=== PATIENT | female | born 1965 | race Caucasian/White ===

== ENCOUNTER → 2019-09-09 15:58 | Outpatient (CLI) | payer OTHER, SELFPAY ==
--- NOTE | 2019-09-09 | DI.RAD.S_ITS ---
PROCEDURE: XR HIP W PEL IF DONE LT MIN 4V INDICATIONS: BILATERAL FRENCH PAIN TECHNIQUE: AP pelvis with lateral view(s) of the right hip(s). COMPARISON: None. FINDINGS: Bones: No fractures or dislocations. Pelvic ring appears intact. No suspicious bony lesions. Hip joint spaces grossly preserved. Soft tissues: The visualized bowel gas pattern is normal. No suspicious soft tissue calcifications. IMPRESSION: Mild degenerative sclerosis and spurring at the pubis symphysis. . Dictated by: Bob Potter M.D. on 09/09/2019 at 17:13 Approved by: Bob Potter M.D. on 09/09/2019 at 17:14
== END ==
PROVIDERS: Family Provider Internal Medicine; PCP Internal Medicine; Referring Provider Internal Medicine; Visit Provider Internal Medicine
DX: R10.32 Left lower quadrant pain (principal); R10.31 Right lower quadrant pain
CPT/HCPCS: 73522

== ENCOUNTER 2020-05-27 18:20 | Emergency (ER) | payer OTHER, SELFPAY ==
[2020-05-27] VITALS (7 sets, daily range): BP systolic 108–149; BP diastolic 67–103; PULSE 73–97; RESP 14–20; TEMP 36.2; O2SAT 97–100; BMI 22.0
--- NOTE | 2020-05-27 18:40 | ED_ITS ---
HPI - Allergic Reaction General Chief complaint: Allergic Reaction Stated complaint: redness on arms, thinks allergic Rx to meds Time Seen by Provider: 05/27/20 18:39 Source: patient Mode of arrival: Ambulatory Limitations: no limitations History of Present Illness HPI narrative: Patient is a 54-year-old female here for evaluation of an allergic reaction potentially to Macrobid. Patient states that she has a pres cription for Macrobid that she takes after having sexual intercourse. She took 1 of these medications shortly before arrival here to the emergency department and very shortly after taking the medication broke out and or rash. Has had nausea but no vomiting. No problems breathing but did like her throat was closing. She took 1 Benadryl tablet prior to arrival. She has taken Macrobid in the past and has never had an issue with it. She denies any other new exposures. Related Data Previous Rx's Medication Instructions Recorded alprazolam 0.5 mg PO PRN PRN #10 tab 05/10/16 hydroxyzine HCl 25 mg PO PRN PRN #30 tab 05/10/16 epinephrine [EpiPen 2-Last] 0.3 mg IM Q5-15M PRN #1 ea 05/27/20 Allergies Allergy/AdvReac Type Severity Reaction Status Date / Time nitrofurantoin Allergy Verified 05/27/20 18:28 Review of Systems Constitutional Constitutional: Denies fatigue and Denies fever(s) Eyes Eyes: Denies change in vision and Denies itchy eyes ENT Ears, Nose, Mouth, and Throat: Denies lip swelling, Reports throat swelling and Reports tongue swelling Cardiovascular Cardiovascular: Denies chest pain and Denies dyspnea Respiratory Respiratory: Denies cough, Denies dyspnea and Denies wheezing Gastrointestinal Gastrointestinal: Denies change in bowel habits, Reports nausea and Denies vomiting Genitourinary Genitourinary: Denies dysuria Genitourinary: Denies dysuria Musculoskeletal Musculoskeletal: Denies myalgias Integumentary/Breasts Skin/Breast: Reports rash Neurologic Neurologic: Denies behavioral changes Psychiatric Psychiatric: Reports anxiety and Denies behavioral changes Endocrine Endocrine: Denies fatigue and Reports flushing Hematologic/Lymphatic On Anticoagulants: No Allergic/Immunologic Allergic/Immunologic: Reports urticaria, Denies itchy eyes, Denies lip swelling, Reports throat swelling, Reports tongue swelling and Denies wheezing Patient History Medical History Insomnia (08/11/15) Irritable bowel syndrome with diarrhea (08/11/15) Osteopenia (08/11/15) Surgical History (Updated 06/05/17 @ 05:37 by Conversion Provider) History of breast augmentation History of tonsillectomy Family History (Updated 08/14/16 @ 00:00 by Conversion Provider) Child Polycystic kidney disease Brother Mental health problem Schizophrenia Mother Hypertension Social History Smoking Status: Unknown if ever smoked Smoking Status: Unknown if ever smoked alcohol intake frequency: holidays/special occasions only Substance Use Type: does not use Exam Initial Vital Signs Initial Vital Signs: Vital Signs Temperature 97.1 F L 05/27/20 18:28 Pulse Rate 97 H 05/27/20 18:28 Respiratory Rate 15 05/27/20 18:28 Blood Pressure 148/86 H 05/27/20 18:28 Pulse Oximetry 98 05/27/20 18:28 Const General: cooperative and comfortable Limitations: mental status not altered HENMT Head: normal to inspection and normocephalic Nose: external nose normal Face and sinus: normal facial exam Mouth: oral mucosae normal Throat: posterior oropharynx normal Eyes General: appearance normal, both eyes and all related structures Chest Chest: No tenderness Resp Effort & Inspection: normal respiratory effort Auscultation: clear to auscultation bilaterally Cardio Rate: regular rate Rhythm: regular rhythm GI Inspection: non-distended Palpation: soft General: bladder normal to palpation Bimanual Exam- Vagina & Uterus: bladder normal to palpation Skin General: erythema and warm Wounds: no wounds Other: Diffuse urticaria Neuro General: patient alert, patient awake and patient oriented x3 Cognition: normal cognition Extrem General: normal to inspection Other: Diffuse urticaria Psych Mood: anxious mood Course Orders Ordered: Discontinued Medications Diphenhydramine HCl (Diphenhydramine 50 Mg/Ml Vial) 25 mg IV NOW ONE Stop: 05/27/20 18:40 Last Admin: 05/27/20 18:44 Dose: 25 mg Documented by: SERINA Epinephrine HCl (Epinephrine 1 Mg/Ml) 0.5 mg 0.01 mg/kg (0.5 mg) IM NOW ONE Stop: 05/27/20 18:40 Last Admin: 05/27/20 18:43 Dose: 0.5 mg Documented by: SERINA Famotidine (Pepcid) 20 mg in 50 mls @ 200 mls/hr IV NOW ONE Stop: 05/27/20 18:53 Last Infusion: 05/27/20 19:07 Dose: 0 mls/hr Documented by: Admin: 05/27/20 18:44 Dose: 200 mls/hr Documented by: SERINA Sodium Chloride (Normal Saline 0.9%) 1,000 mls @ 1,000 mls/hr IV BOLUS ONE Stop: 05/27/20 19:38 Last Infusion: 05/27/20 19:55 Dose: 0 mls/hr Documented by: Admin: 05/27/20 18:52 Dose: 1,000 mls/hr Documented by: SERINA Methylprednisolone (Methylprednisolone 125 Mg/2 Ml Vial) 125 mg IV NOW ONE Stop: 05/27/20 18:40 Last Admin: 05/27/20 18:45 Dose: 125 mg Documented by: SERINA Vital Signs Vital signs: Vital Signs - 8 hr 05/27/20 19:00 05/27/20 19:30 05/27/20 20:00 Pulse Rate 73 79 83 Respiratory Rate 18 17 19 Blood Pressure 140/85 121/76 112/67 Pulse Oximetry 100 100 97 05/27/20 20:30 Pulse Rate 90 Respiratory Rate 20 Blood Pressure 108/68 Pulse Oximetry 98 MDM - Allergic Reaction MDM Narrative Medical decision making narrative: Unsure the exact etiology of her allergic reaction however it is most likely the Macrobid because this started shortly after she took this medication. She did take Benadryl prior to arrival however she did have diffuse urticaria. Stated feel like her throat was swelling and she did have nausea. Because of this she was treated as an anaphylactic reaction. After medications here in the emergency department she had a complete resolution of all of her symptoms. She was never an respiratory distress. She was observed in the emergency department without any return of symptoms. I had a discussion with her about this. Informed her that she should not take the Macrobid again is this is the most likely culprit of her symptoms. Also send home with a prescription for an EpiPen. She was given strict return precautions and follow-up instructions. She expressed understanding and agreement. Critical Care Time Critical Care Time Critical Care Time: Yes Total Critical Care Time: 35 Attestation: The high probability of a clinically significant, sudden or life threatening deterioration of the respiratory system(s) required my full and direct attention, intervention and personal management. The aggregate critical care time was 35 minutes. This time is in addition to time spent performing reported procedures but includes the following: [X] Data Review and interpretation [X] Patient assessment and monitoring of vital signs [X] Documentation [X] Medication orders and management Discharge Plan Departure Patient Disposition: Home Clinical Impression: Anaphylaxis Instructions: DI for Anaphylaxis, DI for Adverse Drug Reaction -- Allergic Activity Restrictions/Additional Instructions: I recommend that you no longer take the Macrobid/nitrofurantoin. Contact your primary provider for a follow-up. Please return to the emergency department immediately if you start to develop problems breathing, rash, nausea vomiting or any other new or worsening symptoms like we discussed. Prescriptions: New epinephrine [EpiPen 2-Last] 0.3 mg/0.3 mL auto-injector 0.3 mg IM Q5-15M PRN (Reason: anaphylaxis) Qty: 1 RF: 0 No Action alprazolam 0.5 MG tablet 0.5 mg PO PRN PRNQty: 10 RF: 0 hydroxyzine HCl 25 MG tablet 25 mg PO PRN PRNQty: 30 RF: 1 Referrals: Farzana Salas ARNP [Primary Care Provider] -
[2020-05-27] MEDS: EPINEPHrine 1 MG/ML 0.5 MG IM (18:43)
[2020-05-27] MEDS: diphenhydrAMINE 50 MG/ML VIAL 25 MG IV (18:44)
[2020-05-27] MEDS: FAMOTIDINE 20 MG/50 ML PIGGYBACK 200 MG IV (18:44)
[2020-05-27] MEDS: methylPREDNISolone 125 MG/2 ML VIAL IV (18:45)
[2020-05-27] MEDS: SODIUM CHLORIDE 0.9% 1,000 ML 1000 ML IV (18:52)
--- NOTE | 2020-05-27 19:07 | PC.NURSE ---
Patient took 1 tab nitrofurantoin and in 15 minutes developed sever itching in her ears that spread to her arms and legs followed by a red rash all over her body. She denied shortness of breathe, or trouble swallowing.
--- NOTE | 2020-05-27 19:19 | PC.NURSE ---
redness on both arms and legs and stomach
== END 2020-05-27 21:23 | disposition home or self-care (01) ==
PROVIDERS: Emergency Provider Emergency Medicine; Family Provider Internal Medicine; PCP Internal Medicine
DX: T88.6XXA Anaphylactic reaction due to adverse effect of correct drug or medicament properly administered, initial encounter (principal); T37.8X5A Adverse effect of other specified systemic anti-infectives and antiparasitics, initial encounter; R11.0 Nausea; R21 Rash and other nonspecific skin eruption
CPT/HCPCS: 96361; 96365; 96372; 96375; 99284; 99291; J0171; J1200; J2930

== ENCOUNTER → 2020-12-28 10:00 | Outpatient (CLI) | payer OTHER, SELFPAY ==
--- NOTE | 2020-12-28 | DI.MG.S_ITS ---
BILATERAL DIGITAL SCREENING MAMMOGRAM 3D/2D WITH CAD WITH AUGMENTATION: 12/28/2020 CLINICAL: Patient presents for routine screening. S/P bilateral augmentation. Comparison is made to exam dated: 12/25/2008 [facility]. The tissue of both breasts is heterogeneously dense. This may lower the sensitivity of mammography. Current study was also evaluated with a Computer Aided Detection (CAD) system. There is a new round equal density asymmetry in the left breast anterior depth superior region seen on the mediolateral oblique view only. No other significant masses, calcifications, or other findings are seen in either breast. IMPRESSION: INCOMPLETE: NEEDS ADDITIONAL IMAGING EVALUATION The new round equal density asymmetry in the left breast is indeterminate. A diagnostic mammogram and ultrasound is recommended. This exam was interpreted at Station ID: [id number]. NOTE: For mammograms, a report in lay terms will be sent to the patient. Approximately 15% of breast malignancies will not be visualized mammographically. In the management of a palpable breast mass, a negative mammogram must not discourage biopsy of a clinically suspicious lesion. Electronically Signed By: Leny rivera/marcio:12/28/2020 11:50:31 letter sent: Additional Imaging Needed ACR BI-RADS Category 0: Incomplete 3340F
== END ==
PROVIDERS: Family Provider Internal Medicine; PCP Internal Medicine; Referring Provider Internal Medicine; Visit Provider Internal Medicine
DX: Z12.31 Encounter for screening mammogram for malignant neoplasm of breast (principal); Z98.82 Breast implant status
CPT/HCPCS: 77063; 77067

== ENCOUNTER → 2021-01-27 08:34 | Outpatient (CLI) | payer OTHER, SELFPAY ==
--- NOTE | 2021-01-27 | DI.US.S_ITS ---
LIMITED ULTRASOUND OF LEFT BREAST: 01/27/2021 CLINICAL: Patient returns today to evaluate a focal asymmetry in the left breast. Comparison is made to exams dated: 01/27/2021 mammogram, 12/28/2020 mammogram, and 12/25/2008 mammogram - [facility]. Real-time ultrasound of the left breast 12-3 o'clock region was performed. Baeza scale images of the real-time examination were reviewed. Fibroglandular tissue but no mass is identifed in the area of the mammographic asymmetry in the left breast upper outer quadrant. IMPRESSION: NEGATIVE No sonographic abnormality is seen corresponding to the possible mammographic asymmetry in the left breast, which is most compatible with normal fibroglandular tissue. Return to screening mammograms is recommended. There is no sonographic evidence of malignancy. A 1 year screening mammogram is recommended. This exam was interpreted at Station ID: [id number]. Electronically Signed By: Herson brady/marcio:01/27/2021 10:37:51 letter sent: Normal Exam Ultrasound BI-RADS: 1 Negative
--- NOTE | 2021-01-27 | DI.MG.S_ITS ---
UNILATERAL LEFT DIGITAL DIAGNOSTIC MAMMOGRAM 3D/2D WITH ADDITIONAL VIEWS: 01/27/2021 CLINICAL: Additional evaluation requested from prior study. Comparison is made to exams dated: 12/28/2020 mammogram and 12/25/2008 mammogram - [facility]. The tissue of left breast is heterogeneously dense. This may lower the sensitivity of mammography. The possible round equal density asymmetry in the left breast anterior depth superior region previously seen on the mediolateral oblique view only is less prominent and is not definitely seen on the current exam. No other significant masses or calcifications are seen in the breast. IMPRESSION: INCOMPLETE: NEEDS ADDITIONAL IMAGING EVALUATION The possible round equal density asymmetry in the left breast that does not definitely persist is indeterminate. An ultrasound is recommended. This exam was interpreted at Station ID: [id number]. NOTE: For mammograms, a report in lay terms will be sent to the patient. Approximately 15% of breast malignancies will not be visualized mammographically. In the management of a palpable breast mass, a negative mammogram must not discourage biopsy of a clinically suspicious lesion. Electronically Signed By: Herson Dan M.D. ar/:01/27/2021 10:31:44 ACR BI-RADS Category 0: Incomplete [id number]
== END ==
PROVIDERS: Family Provider Internal Medicine; PCP Internal Medicine; Referring Provider Internal Medicine; Visit Provider Internal Medicine
DX: R92.8 Other abnormal and inconclusive findings on diagnostic imaging of breast (principal)
CPT/HCPCS: 76642; 77065; G0279

== ENCOUNTER → 2021-03-17 08:19 | Outpatient (CLI) | payer OTHER, SELFPAY ==
--- NOTE | 2021-03-17 08:21 | DI.RAD.S_ITS ---
PROCEDURE: XR KUB INDICATIONS: History of kidney stone TECHNIQUE: One view of the abdomen acquired. COMPARISON: None. FINDINGS: Surgical changes and devices: None. Bowel: Nonspecific bowel gas pattern. Soft tissues: Punctate calcifications project over the renal silhouettes, compatible with nephrolithiasis. Visualized solid organ contours appear normal in size. Bones: No suspicious bony lesions. IMPRESSION: 1. Nonobstructive bowel gas pattern. 2. Nephrolithiasis. Dictated by: Germán Novak M.D. on 03/17/2021 at 8:57 Approved by: Germán Novak M.D. on 03/17/2021 at 8:58
== END ==
PROVIDERS: Family Provider Internal Medicine; PCP Internal Medicine; Referring Provider Specialist; Visit Provider Specialist
DX: N39.8 Other specified disorders of urinary system (principal); N20.0 Calculus of kidney; R39.14 Feeling of incomplete bladder emptying; R33.9 Retention of urine, unspecified; Z87.442 Personal history of urinary calculi; Z87.440 Personal history of urinary (tract) infections; Z87.42 Personal history of other diseases of the female genital tract
CPT/HCPCS: 51798; 74018; 81002; 99213

== ENCOUNTER → 2021-03-31 09:33 | Outpatient (CLI) | payer OTHER, SELFPAY ==
--- NOTE | 2021-03-31 09:34 | DI.CT.S_ITS ---
PROCEDURE: CT ABDOMEN PELVIS WO CON INDICATIONS: Renal calculi TECHNIQUE: Axial sections were acquired from the lung bases to the pubic symphysis. Coronal and sagittal reformats were performed. For radiation dose reduction, the following was used: automated exposure control, adjustment of mA and/or kV according to patient size. COMPARISON: None. FINDINGS: Image quality: Excellent. Lung bases: Unremarkable. Heart: No significant findings. URINARY: Right Kidney: No stones or hydronephrosis. Right Ureter: No hydroureter. Left Kidney: There is a 3 mm in diameter nonobstructing calculus within the midpole of the left kidney. Punctate calcifications are present in the lower pole as well. No left hydronephrosis. Left Ureter: No hydroureter or ureterolithiasis. Bladder: Normal wall thickness. No stones. ABDOMEN: Liver: Unremarkable. Gallbladder: Unremarkable. Biliary ducts: Unremarkable. Pancreas: Unremarkable. Spleen: Unremarkable. Adrenal Glands: Unremarkable. Stomach and Bowel: Stomach, small bowel loops, and colon are unremarkable. The appendix is thin walled and gas filled. Peritoneum: No abnormal intraperitoneal fluid. No free air. Ventral Wall: No hernia. Abdominal Nodes: No enlarged retroperitoneal or mesenteric lymph nodes. Vessels: There are scattered atheromatous calcifications throughout the aorta and iliac arteries bilaterally. PELVIS: Pelvic Organs: There is a exophytic posterior partially calcified uterine fibroid. Pelvic Nodes: Unremarkable. Miscellaneous: No inguinal hernias are seen. Bones: Unremarkable. IMPRESSION: 1. Nonobstructing left nephrolithiasis. No hydronephrosis, hydroureter, or ureterolithiasis. 2. Normal appendix. Dictated by: Jillian Woodard M.D. on 03/31/2021 at 10:54 Approved by: Jillian Woodard M.D. on 03/31/2021 at 10:58
== END ==
PROVIDERS: Family Provider Internal Medicine; PCP Internal Medicine; Referring Provider Urology; Visit Provider Urology
DX: Z87.442 Personal history of urinary calculi (principal); N20.0 Calculus of kidney
CPT/HCPCS: 74176

== ENCOUNTER → 2021-07-08 11:11 | Outpatient (CLI) | payer OTHER, SELFPAY ==
--- NOTE | 2021-07-08 11:14 | DI.RAD.S_ITS ---
PROCEDURE: XR KUB INDICATIONS: Renal calculi TECHNIQUE: One view of the abdomen acquired. COMPARISON: [facility], CR, XR KUB, 03/17/2021, 8:13. FINDINGS: Surgical changes and devices: None. Bowel: Increased stool is seen throughout the large bowel. Soft tissues: No suspicious abdominal calcifications. Visualized solid organ contours appear normal in size. Previously described punctate calcifications projecting over the right inferior pole and left midpole are unchanged. Bones: No suspicious bony lesions. IMPRESSION: 1. No acute abnormality. 2. Punctate calculi superimposed over the kidneys are unchanged. 3. Constipation. Dictated by: Markell Rueda M.D. on 07/08/2021 at 12:03 Approved by: Markell Rueda M.D. on 07/08/2021 at 12:06
== END ==
PROVIDERS: Family Provider Internal Medicine; PCP Internal Medicine; Referring Provider Urology; Visit Provider Urology
DX: N20.0 Calculus of kidney (principal); K59.00 Constipation, unspecified
CPT/HCPCS: 74018

== ENCOUNTER → 2022-01-31 12:08 | Outpatient (CLI) | payer OTHER, SELFPAY ==
--- NOTE | 2022-01-31 12:09 | DI.RAD.S_ITS ---
PROCEDURE: XR KUB INDICATIONS: Kidney stone TECHNIQUE: One view of the abdomen acquired. COMPARISON: [facility], CR, XR KUB, 03/17/2021, 8:13. [facility], CR, XR KUB, 07/08/2021, 11:09. FINDINGS: Surgical changes and devices: None. Bowel: Bowel gas pattern is normal. Soft tissues: 2 millimeter calcification projects over the midpole of the left kidney which is stable compared Coarse calcifications project over the lower pelvis likely related to uterine fibroid. Visualized solid organ contours appear normal in size. Bones: No suspicious bony lesions. IMPRESSION: 2 millimeter left renal stone. Dictated by: Karen Zambrano MD, PhD on 01/31/2022 at 13:32 Approved by: Karen Zambrano MD, PhD on 01/31/2022 at 13:33
== END ==
PROVIDERS: Family Provider Internal Medicine; PCP Internal Medicine; Referring Provider Urology; Visit Provider Urology
DX: N20.0 Calculus of kidney (principal)
CPT/HCPCS: 74018

== ENCOUNTER → 2022-02-03 09:10 | Outpatient (CLI) | payer OTHER, SELFPAY | PROVIDERS: Family Provider Internal Medicine; PCP Internal Medicine; Visit Provider Urology | DX: N20.0 Calculus of kidney (principal); R33.9 Retention of urine, unspecified; R39.14 Feeling of incomplete bladder emptying; Z87.440 Personal history of urinary (tract) infections; Z87.42 Personal history of other diseases of the female genital tract | CPT/HCPCS: 51798; 81002; 87077; 87086; 87186; 99214 ==

== ENCOUNTER → 2022-06-16 09:56 | Outpatient (CLI) | payer OTHER, SELFPAY ==
--- NOTE | 2022-06-16 10:21 | DI.DEXA.S_ITS ---
Bone Density Report Name: JUANITA BENTLEY Age: 56 Sex: Female Ethnicity: White Date of : 1965 Indication: osteopenia; Referring Provider: ISMAEL NUNES Study: Bone densitometry was performed. Exam Date: June 16, 2022 Accession number: [id number] Bone Density: Region BMD T-score Z-score Classification AP Spine(L1-L4) 0.811 -2.1 -0.8 Osteopenia Femoral Neck (Left) 0.495 -3.2 -2.0 Osteoporosis Total Hip (Left) 0.648 -2.4 -1.5 Osteopenia Femoral Neck (Right) 0.517 -3.0 -1.8 Osteoporosis Total Hip (Right) 0.664 -2.3 -1.4 Osteopenia Total Hip Mean 0.656 -2.4 -1.5 Osteopenia World Health Organization criteria for BMD impression classify patients as: Normal (T-score at or above -1.0), Osteopenia (T-score between -1.0 and -2.5), or Osteoporosis (T-score at or below -2.5). 10-year Fracture Risk: FRAX not reported because: Some T-score for Spine Total or Hip Total or Femoral Neck at or below -2.5 Previous Exams: -- Region Exam Age BMD T-score BMD Change BMD Change Date g/cm2 vs Baseline vs Previous -- AP Spine (L1-L4) 06/16/2022 56 0.811 -2.1 -0.046 (-5.4%)# -0.046 (-5.4%)# 10/18/2016 50 0.857 -1.7 Total Hip(Left) 06/16/2022 56 0.648 -2.4 -0.008 (-1.2%)# -0.008 (-1.2%)# 10/18/2016 50 0.656 -2.3 Total Hip(Right) 06/16/2022 56 0.664 -2.3 0.003 (0.5%)# 0.003 (0.5%)# 10/18/2016 50 0.660 -2.3 -- *Denotes significance at 95% confidence level, LSC for AP Spine = 0.022 g/cm2, LSC for Total Hip = 0.027 g/cm2 # Denotes dissimilar scan types or analysis methods Impression: The patient has osteoporosis, based on the Left Femoral Neck T-score. No significant bone loss was observed. Discussion: HIGH RISK OF FRACTURE. BONE DENSITY IS UNDESIRABLY LOW AT ONE OR MORE SKELETAL SITES, CONSISTENT WITH OSTEOPOROSIS. ALSO, BONE DENSITY IS LOWER THAN EXPECTED FOR AGE AND SEX AT ONE OR MORE SKELETAL SITES; RECOMMEND A DILIGENT SEARCH FOR SECONDARY CAUSES OF BONE LOSS. This patient's lowest T-score meets the World Health Organization's (WHO) criteria for osteoporosis at one or more sites (T-score -2.5 or below). In untreated patients, the risk of osteoporotic fracture increases approximately two-fold for each 1.0 SD decrease in T-score. Low bone density is not the only risk factor for fracture; also consider factors such as patient's age, frailty or poor health, risk of falling, risk of injury, previous osteoporotic fracture, family history of osteoporosis, cigarette smoking, low body weight, etc. Not everyone with low bone mineral density has osteoporosis; osteomalacia and other metabolic bone disorders should also be considered. Patients who have osteoporosis should be evaluated for specific diseases and conditions (secondary causes) that may cause or contribute to bone loss. The [place] Association of Clinical Endocrinologists (AACE) and National Osteoporosis Foundation (NOF) recommend pharmacologic intervention for all postmenopausal women whose T-score is in this range. Also, this patient's bone mineral density is below the range considered normal for healthy age-, sex-, and race-matched controls at least one site (Z-score -2.0 or below). This warrants careful evaluation for diseases and conditions that may contribute to accelerated bone loss. The patient should follow a healthful lifestyle (good nutrition with adequate calcium and vitamin D, and appropriate weight-bearing exercise). Follow-Up: Consider a repeat BMD and Vertebral Fracture Assessment (VFA) exam in 2 years or sooner if medically necessary, to reassess this patient's status. Reported by: SANDEEP PURDY M.D. on 06/16/2022 10:29:00 AM.
== END ==
PROVIDERS: Family Provider Internal Medicine; PCP Internal Medicine; Referring Provider Internal Medicine; Visit Provider Internal Medicine
DX: Z78.0 Asymptomatic menopausal state (principal); M81.0 Age-related osteoporosis without current pathological fracture
CPT/HCPCS: 77080

== ENCOUNTER → 2022-07-05 09:46 | Outpatient (CLI) | payer OTHER, SELFPAY ==
--- NOTE | 2022-07-05 | DI.MG.S_ITS ---
BILATERAL DIGITAL SCREENING MAMMOGRAM 3D/2D WITH CAD WITH AUGMENTATION: 07/05/2022 CLINICAL: Routine screening. Comparison is made to exams dated: 12/28/2020 mammogram and 12/25/2008 mammogram - [facility]. Both breasts are heterogeneously dense, which may obscure small masses (category c / 51-75% glandular tissue). Current study was also evaluated with a Computer Aided Detection (CAD) system. Bilateral breast implants are stable. No significant masses, calcifications, or other findings are seen in either breast. There has been no significant interval change. IMPRESSION: NEGATIVE There is no mammographic evidence of malignancy. A 1 year screening mammogram is recommended. Based on the Tyrer Cuzick model (a risk assessment model) the patient's lifetime risk is 10.0% and her 10 year risk is 3.7%. According to the ACR, ACS, and NCCN guidelines, an annual breast MRI exam along with mammogram is recommended if the patient's lifetime risk is 20% or greater. This exam was interpreted at Station ID: [id number]. NOTE: For mammograms, a report in lay terms will be sent to the patient. Approximately 15% of breast malignancies will not be visualized mammographically. In the management of a palpable breast mass, a negative mammogram must not discourage biopsy of a clinically suspicious lesion. Electronically Signed By: Jillian dillard/marcio:07/05/2022 14:11:20 letter sent: Normal Exam ACR BI-RADS Category 1: Negative [id number]
== END ==
PROVIDERS: Family Provider Internal Medicine; PCP Internal Medicine; Referring Provider Internal Medicine; Visit Provider Internal Medicine
DX: Z12.31 Encounter for screening mammogram for malignant neoplasm of breast (principal)
CPT/HCPCS: 77063; 77067

== ENCOUNTER → 2022-07-31 11:09 | Outpatient (CLI) | payer OTHER, SELFPAY ==
--- NOTE | 2022-07-31 | DI.RAD.S_ITS ---
PROCEDURE: XR HIP W PEL IF DONE RT 2V INDICATIONS: HIP PAIN TECHNIQUE: 2 views of the hip were acquired. COMPARISON: [facility], CR, XR HIP W PEL IF DONE DOM 3TO4V, 09/09/2019, 16:02. FINDINGS: Bones: No fractures or dislocations. No suspicious bony lesions. The visualized pelvic ring appears intact. Mild nonuniform joint space narrowing in osteophytic lipping of the acetabulum. Soft tissues: No suspicious soft tissue calcifications or masses. IMPRESSION: No acute bony abnormality. Minimal right hip osteoarthritis. Dictated by: Jacob Luevano M.D. on 07/31/2022 at 12:21 Approved by: Jacob Luevano M.D. on 07/31/2022 at 12:27
--- NOTE | 2022-07-31 11:12 | DI.RAD.S_ITS ---
PROCEDURE: XR KUB INDICATIONS: Kidney stone TECHNIQUE: One view of the abdomen acquired. COMPARISON: [facility], CR, XR KUB, 01/31/2022, 12:11. [facility], CR, XR KUB, 07/08/2021, 11:09. FINDINGS: Surgical changes and devices: None. Bowel: Bowel gas pattern is normal. Soft tissues: 3.6 millimeter calcification projects over the left kidney, similar to prior Bones: No suspicious bony lesions. IMPRESSION: Stable 3.6 millimeter left renal stone. Dictated by: Jacob Luevano M.D. on 07/31/2022 at 12:20 Approved by: Jacob Luevano M.D. on 07/31/2022 at 12:21
== END ==
PROVIDERS: Family Provider Internal Medicine; PCP Internal Medicine; Referring Provider Urology; Visit Provider Urology
DX: N20.0 Calculus of kidney (principal); M25.551 Pain in right hip
CPT/HCPCS: 73502; 74018

== ENCOUNTER → 2022-10-11 06:52 | Outpatient (CLI) | payer OTHER, SELFPAY ==
--- NOTE | 2022-10-11 | DI.CT.S_ITS ---
PROCEDURE: CT ABDOMEN PELVIS W CON INDICATIONS: Change in bowel habit TECHNIQUE: After the administration of oral and intravenous contrast, axial sections were acquired from the lung bases to the pubic symphysis. Coronal and sagittal reformats were performed. For radiation dose reduction, the following was used: automated exposure control, adjustment of mA and/or kV according to patient size. COMPARISON:None. FINDINGS: Image quality: Excellent. Lung bases: Unremarkable. Heart: No significant findings. ABDOMEN: Liver: Unremarkable. Gallbladder: Unremarkable. Biliary ducts: Unremarkable. Pancreas: Unremarkable. Spleen: Unremarkable. Adrenal Glands: Unremarkable. Kidneys and Ureters: Fluid attenuating renal cysts; no complex renal cysts which require follow-up. Punctate nonobstructing left-sided nephrolithiasis, without hydronephrosis. Stomach and Bowel: Stomach, small bowel loops, and colon are unremarkable. Peritoneum: No abnormal intraperitoneal fluid. No free air. Ventral Wall: No hernia. Abdominal Nodes: No retroperitoneal or mesenteric adenopathy by size criteria. Vessels: Aorta and inferior vena cava are normal in size. PELVIS: Pelvic Organs: 3 subserosal fibroids, largest measuring 2.7 centimeters along the posterior margin. Bladder: Unremarkable. Pelvic Nodes: No enlarged lymph nodes. Miscellaneous: No inguinal hernias are seen. Bones: Pectus excavatum. IMPRESSION: Three subserosal uterine fibroids, largest measuring 2.7 centimeters. Punctate nonobstructing left-sided nephrolithiasis. No hydronephrosis. No findings to explain the patient's hematochezia. Consider diagnostic colonoscopy. Dictated by: Jacob Luevano M.D. on 10/11/2022 at 9:01 Approved by: Jacob Luevano M.D. on 10/11/2022 at 9:05
== END ==
PROVIDERS: Family Provider Internal Medicine; PCP Internal Medicine; Referring Provider Internal Medicine; Visit Provider Internal Medicine
DX: K62.5 Hemorrhage of anus and rectum (principal); D25.2 Subserosal leiomyoma of uterus; N20.0 Calculus of kidney; R10.31 Right lower quadrant pain; R19.4 Change in bowel habit
CPT/HCPCS: 74177; Q9967

== ENCOUNTER 2022-11-28 06:52 | Day surgery (SDC) | payer OTHER, SELFPAY ==
--- NOTE | 2022-11-28 | PATH_ITS ---
[facility] Accession Number: [id number] No. of containers..01 Tissue . 01 Material submitted: . rectum - RECTAL POLYP . 01 Diagnosis: Rectum, Polyp: Hyperplastic polyp. MRV 12/05/2022 1401 Local . 01 Electronically signed: . Celia Abernathy MD, Pathologist NPI- [id number] . 01 Gross description: . RECTAL POLYP: Received in formalin is multiple fragment(s) of spencer, soft tissue measuring 0.5 x 0.4 x 0.1 cm in aggregate submitted entirely in 1 cassette(s) /AAY 11/29/2022 0336 Local . 01 Pathologist provided ICD-10: K62.1 . 01 CPT . 462981 Specimen Comment: A courtesy copy of this report has been sent to [phone] Performed at: 01 [facility] [address] [place] [address], [place], [place] [id number] MD Dimas Etienne MD Phone: [phone]
[2022-11-28] MEDS: LACTATED RINGERS 1,000 ML 42 ML IV (07:12)
[2022-11-28 07:15] VITALS: BP 130/87; PULSE 75; RESP 16; TEMP 36.8; O2SAT 100; BMI 19.4
--- NOTE | 2022-11-28 07:41 | PM.HP.1 ---
History of Present Illness History of Present Illness Date Patient Seen: 11/28/22 Time Patient Seen: 07:41 Chief complaint: Colonoscopy Narrative: 57-year-old woman with intermittent rectal bleeding here for diagnostic colonoscopy. Please refer to the H and P from last month for further detail. No significant interval changes in health. [facility], [facility] Medical History Feeling of incomplete bladder emptying History of kidney stones History of senile atrophic vaginitis History of urinary tract infection Incomplete emptying of bladder Insomnia (08/11/15) Irritable bowel syndrome with diarrhea (08/11/15) Osteopenia (08/11/15) Renal calculus Surgical History History of breast augmentation History of tonsillectomy Family History Child Polycystic kidney disease Brother Mental health problem Schizophrenia Mother Hypertension Heart disease Father Lung cancer Aunt Breast cancer Grandfather Pancreatic cancer Social History marital status: household members: spouse lives independently: Yes occupational status: unemployed Smoking Status: Never smoker alcohol intake: never substance use type: does not use Meds Home Medications and Allergies Home Medications Medication Instructions Recorded Confirmed Type levothyroxine 25 mcg tablet 25 mcg PO DAILY 01/19/21 11/28/22 History (Levo-T) estradiol 1 unit SUBCUT 2XW 10/19/22 11/28/22 History Allergies Allergy/AdvReac Type Severity Reaction Status Date / Time nitrofurantoin Allergy Severe Anaphylaxis Verified 11/28/22 07:13 Exam Vital Signs (past 8 hours): - 11/28/22 07:15 Temperature 98.2 F Pulse Rate 75 Respiratory Rate 16 Blood Pressure 130/87 Pulse Oximetry 100 Oxygen Delivery Method Room Air Oxygen Delivery Method Room Air Narrative Exam Narrative: General adult alert oriented no acute distress Assessment & Plan Assessment & Plan narrative: 57-year-old woman with intermittent rectal bleeding here for diagnostic colonoscopy. Risks, benefits, alternatives discussed. Risks including but not limited to myocardial infarction, aspiration, bleeding, pain, missed lesion, incomplete examination, need for further radiographic studies, colonic perforation, and need for major abdominal surgery were discussed. All questions were answered to their satisfaction, and they are in agreement with this plan.
[2022-11-28 08:15] VITALS: BP 118/73; PULSE 79; RESP 16; TEMP 36.2; O2SAT 98
--- NOTE | 2022-11-28 08:17 | PM.OP.COLON ---
Operative Date/Time/Diagnoses Date of procedure: 11/28/22 Time of procedure: 08:18 Pre-op diagnosis: Rectal bleeding Post-op diagnosis: other (Hemorrhoids) Procedure & Clinicians Study performed: Colonoscopy and polypectomy Same procedure as scheduled: Yes Indications: Diagnostic colonoscopy for rectal bleeding Surgeon: Kaleb Young Procedure Notes Procedure in detail: The history and physical was performed/updated and the patient is ASA class is 2. The procedure was discussed in detail with the patient. Potential risks complications including infection, bleeding, missed diagnosis, perforation, need for surgery, and were explained. Their questions were answered and informed consent was obtained. Patient was brought to the procedure room and placed standard monitoring equipment. The patient's vital signs were monitored continuously throughout the entire procedure. Prior to starting time-out was performed. The patient was placed in the left lateral recumbent position. Procedural sedation was administered by anesthesia. Examination began with a thorough inspection of the perianal area there was no evidence of fissures, fistulae, external hemorrhoids or cutaneous malignancy. The colonoscopy scope was then placed into the anal canal and was advanced to the cecum, which was identified by the ileocecal valve, the appendiceal orifice and the confluence of the taenia. The scope was then slowly withdrawn examining colon thoroughly in all directions, irrigating it of any residual stool. The patient tolerated the procedure well. They will be discharged once criteria are met. The prep was of good/excellent quality. The withdrawl time was 7 minutes. FINDINGS -5 mm rectal polyp removed with forceps -Grade 1 internal hemorrhoids Findings: other findings Specimen(s): other (Rectal polyp) Impression: Colonic polyp x1, internal hemorrhoids Post-procedure Recommendations: High fiber diet Plan for aftercare: Follow-up dependent on pathology findings Disposition: same day surgery
[2022-11-28 08:19] VITALS: BP 111/72; PULSE 76; RESP 24; O2SAT 99
[2022-11-28 08:25] VITALS: BP 97/65; PULSE 83; RESP 19; TEMP 36.2; O2SAT 99
[2022-11-28 08:29] VITALS: BP 93/66; PULSE 73; RESP 14; O2SAT 100
[2022-11-28 08:40] VITALS: BP 100/69; PULSE 66
== END 2022-11-28 08:58 | disposition home or self-care (01) ==
PROVIDERS: Family Provider Internal Medicine; PCP Internal Medicine; Referring Provider Surgery; Visit Provider Surgery
PROC: 0DJD8ZZ Inspection of Lower Intestinal Tract, Via Natural or Artificial Opening Endoscopic (ICD-10-PCS; CPT 45378; principal; 2022-11-28 08:00)
DX: K62.5 Hemorrhage of anus and rectum (principal); K64.0 First degree hemorrhoids; K62.1 Rectal polyp
CPT/HCPCS: 45380; J2704

== ENCOUNTER → 2022-12-27 07:57 | Outpatient (CLI) | payer OTHER, SELFPAY ==
--- NOTE | 2022-12-27 07:58 | DI.RAD.S_ITS ---
PROCEDURE: XR FOOT LT MIN 3V INDICATIONS: Left foot pain TECHNIQUE: 3 views of the foot were acquired. COMPARISON: None. FINDINGS: Bones: No fractures or dislocations. No suspicious bony lesions. Soft tissues: No tibiotalar joint effusion. Achilles tendon appears normal. IMPRESSION: No acute bony abnormality. Dictated by: Markell Rueda M.D. on 12/27/2022 at 9:57 Approved by: Markell Rueda M.D. on 12/27/2022 at 9:59
== END ==
PROVIDERS: Family Provider Internal Medicine; PCP Internal Medicine; Referring Provider Nurse Practitioner Family; Visit Provider Nurse Practitioner Family
DX: M79.672 Pain in left foot (principal)
CPT/HCPCS: 73630

== ENCOUNTER → 2023-12-31 07:49 | Outpatient (CLI) | payer OTHER, SELFPAY ==
--- NOTE | 2023-12-31 08:06 | DI.RAD.S_ITS ---
PROCEDURE: XR KUB INDICATIONS: Hematuria TECHNIQUE: One view of the abdomen acquired. COMPARISON: [facility], CR, XR KUB, 07/31/2022, 11:13. FINDINGS: Stool gas pattern: Normal-no evidence of ileus or obstruction. No free intraperitoneal or extraperitoneal air. No gross evidence of ascites Soft tissues: A 3 millimeter calcification overlies the inferior pole of left kidney which likely indicates a renal stone. No definite stones overlie either ureter. A 2.6 centimeter conglomeration of small calcifications, in the right true pelvis, likely represents a calcified uterine fibroid. The urinary bladder stone is possible, but less likely.. Organs: No gross evidence for organomegaly. IMPRESSION: 3 millimeter calcification overlying the inferior left kidney that likely a renal stone. 2.6 centimeter conglomerate of calcifications right true pelvis more likely a partially calcified fibroid rather than a bladder stone. Dictated by: Joe Gonzalez M.D. on 01/01/2024 at 9:30 Approved by: Joe Gonzalez M.D. on 01/01/2024 at 9:32
== END ==
PROVIDERS: Family Provider Internal Medicine; PCP Internal Medicine; Referring Provider Nurse Practitioner Family; Visit Provider Nurse Practitioner Family
DX: M54.9 Dorsalgia, unspecified (principal); R31.9 Hematuria, unspecified
CPT/HCPCS: 74018; 87077; 87086

== ENCOUNTER → 2024-07-23 14:58 | Outpatient (CLI) | payer OTHER, SELFPAY ==
--- NOTE | 2024-07-23 14:59 | DI.RAD.S_ITS ---
PROCEDURE: XR DEXA AXIAL SKELETON INDICATIONS: osteoporosis COMPARISON: [facility], , XR DEXA AXIAL SKELETON, 06/16/2022, 10:21. FINDINGS: Lumbar Spine: Bone mineral density 0.829 g/cm2, T score -2, consistent with osteopenia. Left Femoral Neck: Bone mineral density 0.475 g/cm2, T score -3.4. Left Hip: Bone mineral density 0.625 g/cm2, T score -2.6, consistent with osteoporosis. Fracture Risk Calculation (when applicable): 10-year fracture risk of a major osteoporotic fracture 25 percent and of a hip fracture 5.1 percent. (T score greater or equal to -1.0 to: NORMAL) (T score from -1.1 to -2.4: OSTEOPENIA) (T score less than or equal to -2.5: OSTEOPOROSIS) IMPRESSION: * Slightly worsened bone mineral density at the left femoral neck and hip with osteoporosis. * Slightly improved bone mineral density of the lumbar spine, still with osteopenia. Follow-up guidelines as follows: Osteoporosis: Consider a repeat DEXA and Vertebral Fracture Assessment (VFA) exam in 2 years or sooner if medically necessary, to reassess this patient's status. Osteopenia: Consider a repeat DEXA in 2-3 years to reassess this patient's status, or if there is a new clinical indication. Normal: Consider a repeat DEXA in 5 years or sooner, or if there is a new clinical indication. All treatment decisions require clinical judgment and consideration of individual patient factors, including patient preferences, comorbidities, previous drug use, risk factors not captured in the FRAX model (e.g., frailty, falls, vitamin D deficiency, increased bone turnover, interval significant decline in bone density ) and possible under- or over-estimation of fracture risk by FRAX. In addition, the NOF Guide recommends that FDA-approved medical therapies be considered in postmenopausal women and men age >= 50 years with a: * Hip or vertebral (clinical or morphometric) fracture * T-score of <=-2.5 at the spine or hip * Ten-year fracture probability by FRAX of >= 3% for hip fracture or >=20% for major osteoporotic fracture. Dictated by: Dimas Mackay M.D. on 07/23/2024 at 16:29 Approved by: Dimas Mackay M.D. on 07/23/2024 at 16:34
== END ==
PROVIDERS: Family Provider Internal Medicine; PCP Internal Medicine; Referring Provider Family Medicine; Visit Provider Family Medicine
DX: M81.0 Age-related osteoporosis without current pathological fracture (principal); Z78.0 Asymptomatic menopausal state
CPT/HCPCS: 77080